=== PATIENT | female | born 1980 | race African-American/Black ===

== ENCOUNTER 2020-02-02 17:14 | Emergency (ER) | payer SELFPAY ==
[2020-02-02 17:34] LABS: Basophils % 0.6 % (0-1.3); Hematocrit 39.4 % (36.0-45.0); Lymphocytes % 21.4 % (15.3-44.8); RBC Red Blood Cell Count 4.37 M/uL (3.86-4.86)
[2020-02-02 17:51] LABS: Potassium 4.1 mmol/L (3.5-5.1)
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
[2020-02-02] MEDS ORDERED: NA CHLORIDE 0.9% 1,000 ML ONE (18:45)
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
[2020-02-02] MEDS ORDERED: TETANUS & DIPHTHERIA TOX,ADULT 0.5 ML VIAL ONE (18:59)
[2020-02-02] MEDS ORDERED: LIDOCAINE 1% MPF 30 ML VIAL ONE (19:00)
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
[2020-02-02 20:11] VITALS: TEMP 98
[2020-02-02 20:22] VITALS: BP 121/68; O2SAT 99
== END 2020-02-02 20:04 | disposition short-term general hospital (02) ==
LOC: ER 17:14
PROC: 0JQP0ZZ Repair Left Lower Leg Subcutaneous Tissue and Fascia, Open Approach (ICD-10-PCS; principal; 2020-02-02)
DX: J93.9 Pneumothorax, unspecified (principal); S22.49XA Multiple fractures of ribs, unspecified side, initial encounter for closed fracture; S81.812A Laceration without foreign body, left lower leg, initial encounter; V49.50XA Passenger injured in collision with unspecified motor vehicles in traffic accident, initial encounter; Z23 Encounter for immunization
CPT/HCPCS: 36415; 70450; 71045; 71260; 72125; 72170; 74177; 80048; 82565; 85025; 90471; 90714; 96360; 99285; J7030; Q9967